=== PATIENT | male | born 2000 ===

== ENCOUNTER 2019-08-27 22:48 | Emergency (ER) | payer SELFPAY ==
[2019-08-27 23:19] LABS: Bilirubin Negative (Negative); Blood, Urine Negative (Negative); Clarity Clear (Clear); Glucose, Urine (Dipstick) Normal (Negative); Leukocyte Negative Leu/uL (Negative); Nitrite Negative (Negative); Protein, Urine (Dipstick) 20 mg/dL (Neg-Trace)
--- NOTE | 2019-08-27 23:59 | ULT ---
EXAM: US Testicular W Doppler PROVIDED CLINICAL HISTORY: Testicular pain and edema. Patient reports swelling and bilateral inguinal canals. Recent injury. Yuliana warner ran into corner of a table 2 days ago. COMPARISON: None FINDINGS: Each testicle demonstrates a normal and symmetric homogeneous appearance without evidence of a testic ular mass. Color flow evaluation with spectral analysis demonstrates arterial and venous flow in each testicle with overall symmetric flow in each testicle. A small subcentimeter hypoechoic focus is seen in the left epididymal head which may represent a smal l spermatocele. Right epididymis demonstrates a normal sonographic appearance. There is a single prominent tubular structure adjacent to the right epididymis which probably represe nts a vessel measuring 4 mm in diameter. The remaining adjacent tubular structures representing vessels are not dilated. There does appear to be mild asymmetric flow in the region of the left epidi dymis compared to the right. Correlation for epididymitis is suggested. There is diffuse scrotal wall subcutaneous thickening. IMPRESSION: 1. Single dilated tubular structure adjacent to the right epididymis. Remainder of the adjacent vascu lar structures are normal in diameter. Follow-up ultrasound examination is recommended. 2. Mild increased asymmetric flow left epididymis compared to the right. This could be related to lef t epididymitis. 3. Normal appearing bilateral testicles with arterial and venous flow documented in each testicle. 4. Subcutaneous scrotal wall thickening diffusely.
[2019-08-28] MEDS ORDERED: Ketorolac Tromethamine 30 MG/ML VIAL ONE (00:03)
[2019-08-28] MEDS ORDERED: Lidocaine 1% PF 5 ML VIAL ONE ×2 (00:03)
[2019-08-28] MEDS ORDERED: cefTRIAXone\\ROCEPHIN 250 MG VIAL ONE (00:03)
== END 2019-08-28 00:31 | disposition home or self-care (01) ==
LOC: ERS 22:48
DX: N45.1 Epididymitis (principal)
CPT/HCPCS: 76870; 81003; 87491; 87591; 93976; 96372; J0696; J1885; J2001